=== PATIENT | female | born 1965 | race Caucasian/White ===

== ENCOUNTER 2019-03-22 12:00 | Emergency (ER) | payer MEDICARE, MEDICAID ==
[~2019-03-22] VITALS: Ht 167.6 cm; Wt 90.7 kg
[~2019-03-22 12:00] MED LIST: ATOM10CA PO; CARI350T PO; MORP15TA7 PO; TRAZ-182 PO
[2019-03-22 12:05] VITALS: BP 150/116
== END 2019-03-22 13:15 | disposition home or self-care (01) ==
LOC: ER 12:03
DX: J40 Bronchitis, not specified as acute or chronic (principal); E11.9 Type 2 diabetes mellitus without complications; F17.200 Nicotine dependence, unspecified, uncomplicated; Z88.1 Allergy status to other antibiotic agents; Z79.899 Other long term (current) drug therapy
CPT/HCPCS: 71045-TC

== ENCOUNTER 2021-06-24 16:06 | Emergency (ER) | payer OTHER ==
[~2021-06-24] VITALS: Ht 165.1 cm; Wt 68.0 kg
[2021-06-24 16:21] VITALS: BP 119/56
[2021-06-24 16:57] LABS: BASOPHILS % (AUTO) 0.4 % (0.0-2.0); EOSINOPHILS % (AUTO) 1.5 % (0.0-6.0); HEMATOCRIT 38 % (33-45); HEMOGLOBIN 12.8 g/dL (11.5-14.8); LYMPHOCYTES # (AUTO) 3.4 K/uL (0.8-4.8); LYMPHOCYTES % (AUTO) 46.9 % (20.0-44.0); MEAN CORPUSCULAR HGB CONC 34 g/dl (31.0-36.0); MEAN CORPUSCULAR VOLUME 87 fL (82-100); MONOCYTES # (AUTO) 0.6 K/uL (0.1-1.30); MONOCYTES % (AUTO) 8.1 % (2.0-12.0); NEUTROPHILS # (AUTO) 3.1 K/uL (1.8-8.9); NEUTROPHILS % (AUTO) 43.1 % (43.0-81.0); PLATELET COUNT (AUTO) 225 K/uL (150-450); RED BLOOD CELL COUNT(AUTO) 4.41 MIL/uL (4.0-5.2); WHITE BLOOD COUNT (AUTO) 7.2 K/uL (4.3-11.0)
[2021-06-24 17:07] LABS: CALCIUM, SERUM 8.6 mg/dL (8.5-10.1); CARBON DIOXIDE 31 mmol/L (21-32); CHLORIDE 106 mmol/L (98-107); CREATININE 0.7 mg/dL (0.6-1.3); GLUCOSE 124 mg/dL (74-106); POTASSIUM 3.7 mmol/L (3.5-5.1); SODIUM SERUM 141 mmol/L (136-145); UREA NITROGEN, BLOOD 15 mg/dL (7-18)
[2021-06-24 17:15] LABS: ALANINE AMINOTRANSFERASE 18 U/L (12-78); ALBUMIN 3.1 g/dL (3.4-5.0); ALCOHOL, BLOOD < 3 mg/dL (0-0); ALKALINE PHOSPHATASE 99 U/L (46-116); ASPARTATE AMINOTRANSFERASE 4 U/L (15-37); BILIRUBIN,TOTAL 0.2 mg/dL (0.2-1.0); TOTAL PROTEIN, SERUM 6.4 g/dL (6.4-8.2)
--- NOTE | 2021-06-24 17:59 | NUR ---
COVID ANTIGEN SWAB DONE AND SENT TO THE LAB
--- NOTE | 2021-06-24 18:00 | NUR ---
DINNER PROVIDED. THE PATIENT PRITI PROVIDED MEAL WELL.
[2021-06-24 21:24] LABS: BILIRUBIN,URINE NEGATIVE (NEGATIVE); COLOR,URINE YELLOW (YELLOW); LEUKOCYTE ESTERASE ,URINE NEGATIVE (NEGATIVE); NITRITE, URINE NEGATIVE (NEGATIVE); PH,URINE 5.5 (5.0-8.0); PROTEIN,URINE NEGATIVE (NEGATIVE); UGLUCOSE NEGATIVE (NEGATIVE); UROBILINOGEN,URINE 0.2 EU/dL (0.2)
[2021-06-24 21:34] LABS: BACTERIA,URINE None seen /HPF (None Seen); CALCIUM OXALATE CRYSTALS,UR Many /HPF (None Seen); MUCUS,URINE Moderate /LPF (None Seen); RBC,URINE 0-2 /HPF (0-2); SQUAMOUS EPITHELIAL CELL,UR 0-2 /HPF (None Seen); WBC,URINE 0-2 /HPF (0-3)
--- NOTE | 2021-06-24 23:04 | NUR ---
FACESHEET AND CLINICALS FAXED TO [facility].
--- NOTE | 2021-06-25 00:18 | NUR ---
SPOKE TO [employer]PART[employer] SUPERVISOR PT ACCEPTED UNDER DR. PIÑA CALL FOR REPORT [phone] UNIT 1
--- NOTE | 2021-06-25 00:22 | NUR ---
PT WILL BE TRANSPORTED TO [facility] IN 90 MINS VIA [facility]
--- NOTE | 2021-06-25 01:04 | NUR ---
[facility] AT BEDSIDE FOR TRANSPORT TO [facility]
--- NOTE | 2021-06-25 01:22 | NUR ---
REPORT GIVEN TO MEAGHAN RINALDI FOR [facility]
== END 2021-06-25 04:44 ==
LOC: ER 16:50
DX: R45.851 Suicidal ideations (principal); Z59.01 Sheltered homelessness; M19.90 Unspecified osteoarthritis, unspecified site; E11.9 Type 2 diabetes mellitus without complications; Z79.899 Other long term (current) drug therapy; Z86.79 Personal history of other diseases of the circulatory system; Z20.822 Contact with and (suspected) exposure to COVID-19
CPT/HCPCS: 36415; 80048-TC; 80076-TC; 81001; 85025-TC; C9803; G0480

== ENCOUNTER 2021-08-15 11:21 | Emergency (ER) | payer OTHER ==
[~2021-08-15] VITALS: Ht 157.5 cm; Wt 56.2 kg
--- NOTE | 2021-08-15 12:20 | NUR ---
[facility] AT BEDSIDE FOR WANDING.
--- NOTE | 2021-08-15 12:28 | NUR ---
TO ER BED 18, BIBS VOLUNTARY TO [facility] WITH SI PLAN TO OVERDOSE ON FENTANYL, AAOX3, COOPERATIVE, BREATHING EVEN AND NON LABORED, AWAITING MD ORDERS
--- NOTE | 2021-08-15 12:32 | NUR ---
URINE COLLECTED AND COVID SWAB DONE AND SENT TO LAB
[2021-08-15 12:42] LABS: BILIRUBIN,URINE SMALL (NEGATIVE); COLOR,URINE ORANGE (YELLOW); LEUKOCYTE ESTERASE ,URINE NEGATIVE (NEGATIVE); NITRITE, URINE NEGATIVE (NEGATIVE); PH,URINE 5.5 (5.0-8.0); PROTEIN,URINE TRACE mg/dl (NEGATIVE); UGLUCOSE NEGATIVE (NEGATIVE)
[2021-08-15 12:45] LABS: BASOPHILS # (AUTO) 0.1 K/uL (0.0-0.2); EOSINOPHILS % (AUTO) 2.2 % (0.0-6.0); HEMATOCRIT 39 % (33-45); HEMOGLOBIN 13.2 g/dL (11.5-14.8); LYMPHOCYTES # (AUTO) 2.2 K/uL (0.8-4.8); LYMPHOCYTES % (AUTO) 35.8 % (20.0-44.0); MEAN CORPUSCULAR HGB CONC 34 g/dl (31.0-36.0); MEAN CORPUSCULAR VOLUME 85 fL (82-100); MONOCYTES # (AUTO) 0.5 K/uL (0.1-1.30); MONOCYTES % (AUTO) 8.2 % (2.0-12.0); NEUTROPHILS # (AUTO) 3.2 K/uL (1.8-8.9); NEUTROPHILS % (AUTO) 51.8 % (43.0-81.0); PLATELET COUNT (AUTO) 227 K/uL (150-450); RED BLOOD CELL COUNT(AUTO) 4.64 MIL/uL (4.0-5.2); WHITE BLOOD COUNT (AUTO) 6.1 K/uL (4.3-11.0)
[2021-08-15 12:53] LABS: CALCIUM, SERUM 8.4 mg/dL (8.5-10.1); CARBON DIOXIDE 29 mmol/L (21-32); CHLORIDE 105 mmol/L (98-107); CREATININE 0.7 mg/dL (0.6-1.3); GLUCOSE 134 mg/dL (74-106); POTASSIUM 3.3 mmol/L (3.5-5.1); SODIUM SERUM 144 mmol/L (136-145); UREA NITROGEN, BLOOD 18 mg/dL (7-18)
[2021-08-15 12:55] LABS: BACTERIA,URINE Few /HPF (None Seen); CALCIUM OXALATE CRYSTALS,UR Moderate /HPF (None Seen); RBC,URINE 0-2 /HPF (0-2)
[2021-08-15 12:58] LABS: ALANINE AMINOTRANSFERASE 27 U/L (12-78); ALBUMIN 3.7 g/dL (3.4-5.0); ALCOHOL, BLOOD < 3 mg/dL (0-0); ALKALINE PHOSPHATASE 93 U/L (46-116); ASPARTATE AMINOTRANSFERASE 26 U/L (15-37); BILIRUBIN,DIRECT 0.1 mg/dL (0.0-0.2); BILIRUBIN,TOTAL 0.2 mg/dL (0.2-1.0); TOTAL PROTEIN, SERUM 7.3 g/dL (6.4-8.2)
[2021-08-15 12:59] LABS: ACETAMINOPHEN < 2 ug/ml (10-30)
--- NOTE | 2021-08-15 17:14 | NUR ---
ACCEPTED AT [facility] PER INTAKE
[2021-08-15] MEDS ORDERED: POTASSIUM CHLORIDE 20 MEQ TAB.PRT.SR PO ONE ×2 (17:22→17:30)
--- NOTE | 2021-08-15 19:07 | NUR ---
CALLED [facility] TO UPDATE LATEST K+ LEVEL. WILL CALL BACK FOR UPDATE.
--- NOTE | 2021-08-15 21:51 | NUR ---
[facility] CALLED BACK. PT CLINICALLY ACCEPTED BUT INSURANCE NEEDS TO BE VERIFIED IN THE MORNING.
[2021-08-15] MEDS ORDERED: LORAZEPAM 1 MG TABLET PO ONE (22:00)
[2021-08-15] MEDS ORDERED: LORAZEPAM 1 MG TABLET ONE (22:06)
--- NOTE | 2021-08-16 08:05 | NUR ---
PT OFFERED FOOD. TOLERATED WELL
--- NOTE | 2021-08-16 08:59 | NUR ---
CALLED [facility] WILL CALL US BACK AFTER VERIFICATION OF INSURANCE.
--- NOTE | 2021-08-16 09:32 | NUR ---
Per Mark, pt. is accepted to [facility]. Will call back with acceptance info.
--- NOTE | 2021-08-16 09:38 | NUR ---
[facility], [address]. Number to report: [phone] ETA: 1400
[2021-08-16] MEDS ORDERED: LORAZEPAM 1 MG TABLET ONE (09:39)
[2021-08-16] MEDS ORDERED: LORAZEPAM 1 MG TABLET PO ONE ×2 (10:00→15:00)
--- NOTE | 2021-08-16 14:18 | NUR ---
REPORT GIVEN TO ROCAEL FOR [facility]
[2021-08-16 14:23] VITALS: BP 128/81
--- NOTE | 2021-08-16 14:30 | NUR ---
[facility] CALLED ETA 60-75 MINS PER [facility].
--- NOTE | 2021-08-16 14:44 | NUR ---
TRANSPORTATION ARRIVED, PT ABLE TO AMBULATE ON HER OWN, PT LEFT FACLITY IN STABLE CONDITION.
--- NOTE | 2021-08-16 14:45 | NUR ---
CANCELED [facility] PICKING UP PT.
== END 2021-08-16 14:53 ==
LOC: ER 11:34
DX: R45.851 Suicidal ideations (principal); Z20.822 Contact with and (suspected) exposure to COVID-19; E11.9 Type 2 diabetes mellitus without complications; M19.90 Unspecified osteoarthritis, unspecified site; Z86.79 Personal history of other diseases of the circulatory system; F19.10 Other psychoactive substance abuse, uncomplicated; F17.200 Nicotine dependence, unspecified, uncomplicated
CPT/HCPCS: 36415; 80048; 80076; 80143; 80307; 80320; 81001; 84132; 85025; 87426; 99285; C9803; G0480